=== PATIENT | female | born 1960 | race Caucasian/White ===

== ENCOUNTER 2016-07-12 09:06 | Day surgery (SDC) | payer OTHER ==
[~2016-07-12 09:06] MED LIST: ACETAMINOPHEN1 EAC4 PO; ASPIRIN325 M3 PO; FLUTICASONE PRO16 G1; HYDROCODON-ACE1 EA16 PO; LISINOPRIL; LISINOPRIL-HCT1 EAC3 PO; LOPERAMIDE2 M2 PO; MELATONIN5 M7 PO; MOBIC15 M2 PO; NABUMETONE750 M1 PO; OMEPRAZOLE20 M3 PO; PRILOSEC20 M1 PO; ROXICODONE5 M2 PO; SYNTHROID100 MC1 PO; TYLENOL325 M2 PO; ULTRAM50 M1 PO; VITAMIN D3; VITAMIN D35000 UNI3 PO; XYZAL5 M1 PO; ZOFRAN ODT4 MG PO; ZOLOFT; ZOLOFT100 M1 PO
[2016-07-12 12:23] LABS: BASO % 0.2 % (0-2); EOS % 0.1 % (0-7); HCT-HEMATOCRIT 35.5 % (34.0-49.0); HGB-HEMOGLOBIN 12.4 gm/dl (12.0-15.5); IMMATURE GRANULOCYTES ABSOLUTE 0.05 tho/cmm (0-0.03); IMMATURE GRANULOCYTES PERCENT 0.4 % (0-0.3); LYMPH % 10.8 % (20-45); LYMPH ABSOLUTE COUNT 1.2 tho/cmm (0.8-4.5); MCH (MEAN CORPUSCULAR HGB) 28.3 pg (28.0-32.0); MCHC MEAN CORPUSCULAR HGB CONC 34.9 % (32.0-36.0); MCV (MEAN CELL VOLUME) 81.1 fl (82.0-96.0); MEAN PLATELET VOLUME 9.5 cmc (9.4-12.4); MONO % 4.4 % (0-12); MONOCYTE ABSOLUTE COUNT 0.5 tho/cmm (0.0-1.2); NEUTROPHIL ABSOLUTE COUNT 9.6 tho/cmm (1.6-8.0); NEUTROPHIL-AUTOMATED 9.6 tho/cmm (1.6-8.0); NEUTROPHILS % 84.1 % (40-80); PLATELET COUNT 220 tho/cmm (150-450); RED BLOOD COUNT 4.38 mil/cmm (4.00-5.20); RED CELL DISTRIBUTION WIDTH 14.5 % (12.4-16.4); WHITE BLOOD COUNT 11.4 tho/cmm (4.0-10.0)
[2016-07-12 12:46] LABS: URINE BILIRUBIN NEGATIVE (NEG); URINE BLOOD NEGATIVE (NEG); URINE GLUCOSE (UA) NEGATIVE (NEG); URINE KETONE NEGATIVE (NEG); URINE LEUKOCYTE ESTERASE NEGATIVE (NEG); URINE NITRITE NEGATIVE (NEG); URINE PROTEIN SMALL (NEG)
[2016-07-12 12:47] LABS: URINE APPEARANCE CLEAR; URINE COLOR YELLOW
[2016-07-12 12:54] LABS: ALB/GLOB RATIO 1.3 (0.8-2.0); ALBUMIN 3.9 g/dl (3.5-5.0); ALKALINE PHOSPHATASE 81 U/L (33-138); ALT/SGPT 30 U/L (12-78); ANION GAP 15 mmol/L (0-20); BILIRUBIN,TOTAL 0.5 mg/dl (0-1.5); BLOOD UREA NITROGEN 15 mg/dl (6-24); CALCIUM 8.8 mg/dl (8.5-10.5); CARBON DIOXIDE-VENOUS 24 mmol/L (22-32); CHLORIDE 107 mmol/l (96-110); CREATININE 0.72 mg/dl (0.50-1.10); GLUCOSE 112 mg/dL (70-110); LIPASE 67 U/L (73-393); SODIUM 142 mmol/L (135-145); eGFR VALUE FOR BLACK >90 mL/Min
[2016-07-12 12:55] LABS: AST/SGOT 26 U/L (10-40); POTASSIUM 4.1 mmol/L (3.7-5.1)
[2016-07-12 13:01] LABS: URINE EPITHELIAL CELLS 0 /[HPF] (0-10); URINE RBC 0-1 /[HPF] (0-5); URINE WBC 0-1 /[HPF] (0-5)
[2016-10-16] MEDS ORDERED: XYZAL5 M1 PO (14:23)
[2016-10-16] MEDS ORDERED: TYLENOL EXTRA500 M1 PO (14:24)
[2016-10-16] MEDS ORDERED: HYDROCODON-ACE1 EA16 PO (14:24)
[2016-10-16] MEDS ORDERED: SOY PO (14:25)
[2016-10-21] MEDS ORDERED: LORTAB ELIXER PO (13:36)
== END 2016-07-13 11:26 ==
LOC: EDMED 09:06 → SRG 13:33 → CAR1 14:27 → ORW 16:19 → PACU 17:57 → CAR1 18:26
PROVIDERS: Physician Assistant
PROC: 0FT44ZZ Resection of Gallbladder, Percutaneous Endoscopic Approach (ICD-10-PCS; principal; 2016-07-12)
DX: K80.10 Calculus of gallbladder with chronic cholecystitis without obstruction (principal); I10 Essential (primary) hypertension; E66.9 Obesity, unspecified; E03.9 Hypothyroidism, unspecified; F32.9 Major depressive disorder, single episode, unspecified; K21.9 Gastro-esophageal reflux disease without esophagitis; Z79.899 Other long term (current) drug therapy; Z88.1 Allergy status to other antibiotic agents; Z96.642 Presence of left artificial hip joint; Z98.890 Other specified postprocedural states
CPT/HCPCS: J1956; J2270; J2405; J7030